=== PATIENT | female | born 1945 | race Caucasian/White ===

== ENCOUNTER → 2016-12-22 | Outpatient (CLI) | payer BC ==
[~2016-12-22] MED LIST: ATOR10TA88 PO; CHOL100010 PO; CLTP PO; DIGO0.122 PO; DILT120C PO; LEVO125T4 PO; XRL10 PO; [UNRECOGNIZED DRUG - OTHER]
[2016-12-22 13:36] LABS: THYROID STIMULATING HORMONE 0.141 uIu/ml (0.300-4.500)
[2016-12-24 17:59] LABS: THYROGLOBULIN <0.1 NG/ML (2.8-40.9)
== END | disposition home or self-care (01) ==
LOC: C.LABBFT 08:25
PROVIDERS: ATTEND Internal Medicine Endocrinology, Diabetes & Metabolism
DX: Z85.850 Personal history of malignant neoplasm of thyroid (principal)

== ENCOUNTER → 2017-01-19 | Outpatient (CLI) | payer BC ==
[~2017-01-19] MED LIST changes: +ATOR10TA82 PO; -ATOR10TA88 PO; -LEVO125T4 PO; +LEVO125T5 PO
--- NOTE | 2017-01-19 16:24 | MAMMOGRAPHY REPORT ---
BILATERAL DIGITAL SCREENING MAMMOGRAM WITH CAD: 01/19/2017 CLINICAL HISTORY: Routine screening. Patient has no complaints. TECHNIQUE: Bilateral CC and MLO views were obtained. Current study was also evaluated with a Comput er Aided Detection (CAD) system. COMPARISON: Comparison is made to exams dated: 12/24/2015 mammogram, 12/13/2014 mammogram, 10/21/2013 mammogram, 10/15/2012 mammogram, 10/09/2011 mammogram, and 10/02/2010 mammogram - [facility]. BREAST COMPOSITION: There are scattered areas of fibroglandular density in both breasts. FINDINGS: There is a stable benign coarse calcification in the left breast. No new suspicious mas s, architectural distortion or cluster of microcalcifications is seen. IMPRESSION: ACR BI-RADS CATEGORY 2: BENIGN There is no mammographic evidence of malignancy. A 1 year screening mammogram is recommended. The p atient will receive written notification of the results. Approximately 10% of breast cancers are not detected with mammography. A negative mammographic repor t should not delay biopsy if a clinically suggestive mass is present. Elicia Casillas M.D. ay/:01/19/2017 15:21:33 Sap Basis: Winifred OCHOA(Chiqui)(M), [facility] letter sent: Normal 1/2 BI-RADS Code: ACR BI-RADS Category 2: Benign
== END | disposition home or self-care (01) ==
LOC: C.MAMM 08:50
PROVIDERS: ATTEND Internal Medicine
DX: Z12.31 Encounter for screening mammogram for malignant neoplasm of breast (principal)

== ENCOUNTER → 2017-03-18 | Outpatient (CLI) | payer BC ==
[2017-03-18 18:50] LABS: THYROID STIMULATING HORMONE 0.459 uIu/ml (0.300-4.500)
== END | disposition home or self-care (01) ==
LOC: C.LABBFT 10:32
PROVIDERS: ATTEND Internal Medicine Endocrinology, Diabetes & Metabolism
DX: R94.6 Abnormal results of thyroid function studies (principal); Z85.850 Personal history of malignant neoplasm of thyroid

== ENCOUNTER → 2017-03-20 | Outpatient (CLI) | payer BC ==
--- NOTE | 2017-03-20 10:59 | DIAGNOSTIC IMAGING REPORT ---
RIGHT ANKLE MIN 3 VIEWS ROUTINE CLINICAL HISTORY: Right ankle mass COMPARISON: None. DISCUSSION: No fractures or dislocations are visualized. There are no erosive or destructive changes. There is a plantar calcaneal spur. No soft tissue masses are visualized on conventional graphic imaging. IMPRESSION: 1. No significant bony abnormalities 2. There are no conventional radiographic findings to explain the patient's palpable soft tissue lesion. Clinical follow-up is advocated. Electronically signed by: Vinicius Blank M.D. 03/20/2017 10:57 AM Dictated Date/Time: 03/20/2017 10:56 AM
== END | disposition home or self-care (01) ==
LOC: C.RAD1850 10:37
PROVIDERS: ATTEND Physician Assistant Medical
DX: M79.89 Other specified soft tissue disorders (principal)

== ENCOUNTER → 2018-01-27 | Outpatient (CLI) | payer BC ==
[~2018-01-27] MED LIST changes: +DILT-213 PO; -DILT120C PO
--- NOTE | 2018-01-28 14:45 | MAMMOGRAPHY REPORT ---
BILATERAL DIGITAL SCREENING MAMMOGRAM TOMOSYNTHESIS WITH CAD: 01/27/2018 CLINICAL HISTORY: Routine screening. Patient has no complaints. TECHNIQUE: Breast tomosynthesis in addition to standard 2D mammography was performed. Current study was also evaluated with a Computer Aided Detection (CAD) system. COMPARISON: Comparison is made to exams dated: 01/19/2017 mammogram, 12/24/2015 mammogram, 12/13/2014 m ammogram, 10/21/2013 mammogram, 10/15/2012 mammogram, and 10/09/2011 mammogram - [facility]ter. BREAST COMPOSITION: There are scattered areas of fibroglandular density in both breasts. FINDINGS: No suspicious masses, calcifications, or areas of architectural distortion are noted in ei ther breast. There has been no significant interval change compared to prior exams. IMPRESSION: ACR BI-RADS CATEGORY 1: NEGATIVE There is no mammographic evidence of malignancy. A 1 year screening mammogram is recommended. The pa tient will receive written notification of the results. Approximately 10% of breast cancers are not detected with mammography. A negative mammographic report should not delay biopsy if a clinically suggestive mass is present. Sadia Thomas M.D. ah/:01/27/2018 15:50:37 Fire Eater: Winifred Moran RT(R)(M), [facility] letter sent: Normal 1/2 BI-RADS Code: ACR BI-RADS Category 1: Negative
== END | disposition home or self-care (01) ==
LOC: C.MAMM 13:17
PROVIDERS: ATTEND Internal Medicine
DX: Z12.31 Encounter for screening mammogram for malignant neoplasm of breast (principal)

== ENCOUNTER 2022-01-07 05:07 | Observation (INO) ==
--- NOTE | 2021-12-19 15:42 | PAT Medication Instructions ---
Medication Instructions Date of Service December 19, 2021 Home Medications Medication Instructions Recorded ipratropium bromide 21 mcg (0.03 See Rx Instructions .ROUTE 01/14/ %) nasal spray .COMPLEX #30 ml cholecalciferol (vitamin D3) 25 mcg (1,000 unit) capsule 1,000 units PO HS calcium carbonate-vitamin D3 600 mg-125 unit tablet 2 tab PO BID ipratropium bromide 21 mcg (0.03 %) nasal spray See Rx Instructions acetaminophen 500 mg tablet 1,000 mg PO BID beclomethasone dipropionate 40 mcg/actuation HFA breath activated aerosol (Qvar RediHaler) 2 inh INH BID PRN digoxin 125 mcg (0.125 mg) tablet 125 mcg PO HS diltiazem HCl 120 mg capsule,extended release 24 hr 120 mg PO HS levothyroxine 125 mcg tablet 112 mcg PO QAM mometasone 50 mcg/actuation nasal spray 2 spray INTNAS BID PRN rivaroxaban 20 mg tablet 20 mg PO QPM rosuvastatin 10 mg tablet 5 - 10 mg PO QAM ASK your prescriber and surgeon rivaroxaban 20 mg tablet 20 mg PO QPM (must be off Xarelto 72 hours in order to get spinal anesthesia) DO NOT take the morning of surgery calcium carbonate-vitamin D3 600 mg-125 unit tablet 2 tab PO BID Take morning of surgery With a small sip of water, OTHERWISE NOTHING TO EAT OR DRINK AFTER MIDNIGHT: acetaminophen 500 mg tablet 1,000 mg PO BID (okay to take up to 4 hours prior to surgery if needed) beclomethasone dipropionate 40 mcg/actuation HFA breath activated aerosol (Qvar RediHaler) 2 inh INH BID PRN (if needed) ipratropium bromide 21 mcg (0.03 %) nasal spray See Rx Instructions levothyroxine 125 mcg tablet 112 mcg PO QAM mometasone 50 mcg/actuation nasal spray 2 spray INTNAS BID PRN (if needed) rosuvastatin 10 mg tablet 5 - 10 mg PO QAM Take evening before surgery cholecalciferol (vitamin D3) 25 mcg (1,000 unit) capsule 1,000 units PO HS calcium carbonate-vitamin D3 600 mg-125 unit tablet 2 tab PO BID ipratropium bromide 21 mcg (0.03 %) nasal spray See Rx Instructions acetaminophen 500 mg tablet 1,000 mg PO BID beclomethasone dipropionate 40 mcg/actuation HFA breath activated aerosol (Qvar RediHaler) 2 inh INH BID PRN (if needed) digoxin 125 mcg (0.125 mg) tablet 125 mcg PO HS diltiazem HCl 120 mg capsule,extended release 24 hr 120 mg PO HS levothyroxine 125 mcg tablet 112 mcg PO QAM mometasone 50 mcg/actuation nasal spray 2 spray INTNAS BID PRN (if needed) Other Notes If you have any questions please call us at [phone] or [phone] or [phone] or [phone]
--- NOTE | 2021-12-23 14:25 | Anesthesiology Consultation ---
Date of Service December 23, 2021 Assessment & Plan (1) Encounter for pre-operative examination: - check BSG am DOS. - cardiology pre-op evaluation and optimization note with recommendations 10/22/2021 [place]: "...permanent atrial fibrillation doing well with no cardiopulmonary symptoms. Ventricular rate well controlled on her current combination of diltiazem and digoxin...was on metoprolol at 1 point but noted dyspnea, she feels much better on the diltiazem and digoxin combination...CHADS- VASC2 score of 3, the predicted annual thromboembolic rate exceeds the risk of being on rivaroxaban. She has had no bleeding problems, and her earlier pe rceived side effects resolved, therefore continue rivaroxaban. Lipid profile favorable on current low-dose statin...elevated hemoglobin A1c. No change in her current medical regimen. Multiple prescriptions refilled (printed out). Historically she has a good functional status and she has no known coronary disease, thus she could proceed to left hip replacement without further testing if necessary. She would stop her rivaroxaban for 2 days prior to surgery (not including the day of surgery) and continue digoxin and diltiazem for rate control..." - COVID screening: Per assessment on 12/23/2021: Travel screen negative, no known COVID-19 positive contacts or current COVID-19 related symptoms in past 2 weeks. Patient vaccinated. Surgeon arranging preop COVID testing, scheduled 01/03/2022. Awaiting results. Chart Review Chart Review: Acceptable Risk for Surgery and Patient seen in Pre Admission Testing Teaching & Discussion Pre-Anesthesia Teaching/Discussion Notes: Instructed NPO after midnight before surgery, except medications with 15 cc of water. Medication instructions provided according to the PAT guidelines. History Surgery Operation Date: 01/07/22 12:55 Proposed Procedures p Left Total Hip Replacement - Zion Bonds MD Height/Weight Height: 5 ft 5 in Weight: 79.3 kg Allergies Allergy/AdvReac Type Severity Reaction Status Date / Time metoprolol [From Toprol XL] AdvReac Severe Severe SOB Verified 12/20/21 11:11 Medications Home Medications Medication Instructions Recorded Confirmed Last Taken cholecalciferol (vitamin D3) 25 1,000 units PO HS 05/10/19 12/23/21 Unknown mcg (1,000 unit) capsule calcium carbonate-vitamin D3 600 2 tab PO BID tab 10/18/19 12/23/21 Unknown mg-125 unit tablet ipratropium bromide 21 mcg (0.03 See Rx Instructions .ROUTE 01/14/21 12/23/21 Unknown %) nasal spray .COMPLEX #30 ml acetaminophen 500 mg tablet 1,000 mg PO BID 12/19/21 12/23/21 Unknown beclomethasone dipropionate 40 2 inh INH BID PRN 12/19/21 12/23/21 Unknown mcg/actuation HFA breath activated aerosol (Qvar RediHaler) digoxin 125 mcg (0.125 mg) tablet 125 mcg PO HS 12/19/21 12/23/21 Unknown diltiazem HCl 120 mg 120 mg PO HS 12/19/21 12/23/21 Unknown capsule,extended release 24 hr levothyroxine 125 mcg tablet 112 mcg PO QAM 12/19/21 12/23/21 Unknown mometasone 50 mcg/actuation nasal 2 spray INTNAS BID PRN 12/19/21 12/23/21 Unknown spray rivaroxaban 20 mg tablet 20 mg PO QPM 12/19/21 12/23/21 Unknown rosuvastatin 10 mg tablet 5 - 10 mg PO QAM 12/19/21 12/23/21 Unknown Past Medical History Medical History (Updated 12/24/21 @ 08:25 by Ebony Zarate PA-C) Atrial fibrillation Follows with Dr. Swan, on anticoagulation Chronic sinusitis Greater trochanteric pain syndrome of left lower extremity History of thyroid cancer s/p total thyroidectomy and radioactive iodine, on levothyroxine and follows with endocrinology Impaired fasting glucose A1c 6.4% 07/2021 Lumbar radiculopathy Mild reactive airways disease chronic cough and throat clearing, controlled and stable per pt, follows with PCP and pulmonology Pulmonary nodules Sciatica Spinal stenosis Patient denies h/o stroke, seizures, heart attack, heart failure, blood clots or blood transfusions. Exercise / Class Metabolic Activity II 4-5 Yardwork/Stairs/Walk up hill (denies CP or SOB with 1 FOS) Past Family History Family History Mother Colon cancer Osteoarthritis Heart disease Father Stroke syndrome Osteoarthritis Herpes zoster Daughter Thyroid cancer Breast cancer Aunt Breast cancer Grandfather Myocardial infarction Other Coronary heart disease Denies family history of Ovarian cancer Prostate cancer Past Surgical History Surgical History H/O cardiac radiofrequency ablation History of cataract surgery R/L History of colonoscopy History of hysterectomy TOTAL History of parathyroidectomy History of thyroidectomy, total Past Anesthesia History No Hx of Anesthesia Complications and No Family Hx of Anesthesia Complications History of PONV No Hx of PONV and No Hx of Motion Sickness Social History Smoking Status: Former smoker Smoking cigarettes per day: <5 Do You Dip or Chew Tobacco: No Smoking End Date: QUIT AGE 49 Hx Alcohol Use: No Hx Substance Use: No Review of Systems H/o snoring, denies witnessed apneas or sleep studies. Occasional reflux if eats re-fried beans. Rare chronic palpitations, denies change or worsening. Denies dizziness, lightheadedness or shortness of breath. Patient denies chest pain, shortness of breath, dyspnea on exertion, snoring, witnessed apneas, fever, chills, wheezing, or palpitations. Physical Exam Vital Signs Vitals BP 118/69 P 88 TEMP 97.4 SP02 97% on RA RESP 17 Physical Full cervical extension range of motion without pain Full TMJ range of motion TMD 3.5 finger breaths Mallampati Score 1 Dentition: intact, multiple caps/crowns throughout and one implant upper right side; denies missing, loose or chipped teeth, bridges Lungs: normal respiratory effort. Clear throughout to auscultation, no adventitious breath sounds Cardiac: regular rate and rhythm, no murmurs noted Carotid arteries: negative bruit bilat Lab Results Anesthesia Preop Results Results Anesthesia Widget: WBC 7.15 K/uL (4.8-10.8) 12/23/21 Hgb 15.0 g/dL (12.0-16.0) 12/23/21 Hct 43.8 % (37-47) 12/23/21 Plt 229 K/uL (130-400) 12/23/21 Na 139 mmol/L (136-145) 12/23/21 K 3.9 mmol/L (3.5-5.1) 12/23/21 Cl 104 mmol/L (98-107) 12/23/21 CO2 26 mmol/L (21-32) 12/23/21 BUN 15 mg/dl (6-23) 12/23/21 Creat 1.08 mg/dl (0.6-1.2) 12/23/21 Glucose Level 100 mg/dl (70-99(Fasting)) H 12/23/21 PT 11.9 Seconds (9.0-12.0) 12/23/21 PTT 32.6 Seconds (21.0-31.0) H 12/23/21 INR 1.1 (0.9-1.1) 12/23/21 Blood Type O Positive 12/23/21 Antibody Screen NEGATIVE 12/23/21 Testing Electrocardiogram Date: 12/23/21 Atrial fibrillation with premature ventricular or aberrantly conducted complexes, rate 100 bpm Chest X-Ray Date: 12/23/21 Frontal and lateral radiographs of the chest demonstrate the cardiomediastinal silhouette to be within normal limits. The lungs are clear of alveolar opacities. There is no evidence for effusion bilaterally. There is no evidence for vascular congestion. There is no acute osseous pathology. IMPRESSION: 1. No acute cardiopulmonary disease.
[2022-01-07] MEDS ORDERED: TRANEXAMIC ACID 1,000 MG **IV Pre-op IV SCH (06:00)
[2022-01-07] MEDS ORDERED: FAMOTIDINE 20 MG TAB PO SCH (06:00)
[2022-01-07] MEDS ORDERED: ceFAZolin 2000MG 2,000 MG/15 ML SYR IV SCH (06:00)
[2022-01-07] MEDS ORDERED: GABAPENTIN 300 MG CAP PO SCH (06:00)
[2022-01-07] MEDS ORDERED: BUPIVACAINE LIPOSOME/PF 266 MG, BUPIVACAINE/EPINEPHRINE 50 ML, SODIUM CHLORIDE 0.9% 30 ... INFIL SCH (06:00)
[2022-01-07] MEDS ORDERED: LR 60ML/HR IV SCH (06:00)
[2022-01-07] MEDS ORDERED: METOCLOPRAMIDE HCL 10 MG TABLET PO SCH (06:00)
[2022-01-07] MEDS ORDERED: LR 500ML BOLUS, THEN 15ML/HR IV SCH (06:00)
[2022-01-07] MEDS ORDERED: ACETAMINOPHEN 500 MG TAB PO SCH (06:00)
[2022-01-07] MEDS ORDERED: BUPIVACAINE 0.5 % 5 MG/1 ML MPF 30ML VIAL ONE (06:31)
[2022-01-07] MEDS ORDERED: EPINEPHrine INJ 1 MG/ML AMP ONE (06:31)
[2022-01-07] MEDS ORDERED: BUPIVACAINE 0.5 % 5 MG/1 ML PF 10ML VIAL ONE (06:33)
[2022-01-07] MEDS ORDERED: MIDAZOLAM HCL 1 MG/ML 2ML VIAL ONE (06:41)
--- NOTE | 2022-01-07 06:52 | History & Physical Bridge Note ---
Date of Service January 07, 2022 History & Physical Bridge Note I have examined the patient, reviewed the History & Physical and in the interval since the performance of the History & Physical I have noted the following changes of clinical significance: no changes noted
[2022-01-07] MEDS ORDERED: ONDANSETRON INJ 2 MG/ML 2 ML VIAL IV PRN ×2 (07:01→12:27)
[2022-01-07] MEDS ORDERED: HYDROmorphone INJ 1 MG/ML SYRINGE IV PRN (07:01)
[2022-01-07] MEDS ORDERED: ePHEDrine sulfate 50 MG/ML AMP IV PRN (07:01)
[2022-01-07] MEDS ORDERED: ATROPINE SULFATE 0.1 MG/ML 10ML SYR IV PRN (07:01)
[2022-01-07] MEDS ORDERED: fentaNYL citrate 100 MCG/2 ML VIAL IV PRN (07:01)
[2022-01-07] MEDS ORDERED: fentaNYL citrate 100 MCG/2 ML VIAL ONE (07:11)
[2022-01-07] MEDS ORDERED: ONDANSETRON INJ 2 MG/ML 2 ML VIAL ONE (07:14)
[2022-01-07] MEDS ORDERED: LIDOCAINE 2% 2 ML VIAL/AMP(20MG/ML) INFIL ONE (07:14)
[2022-01-07] MEDS ORDERED: PROPOFOL IV EMULSION 10 MG/ML 20 ML VIAL IV ONE (07:14)
[2022-01-07] MEDS ORDERED: PHENYLEPHRINE HCL 10 MG/ML VIAL ONE (08:14)
[2022-01-07] MEDS ORDERED: PHENYLEPHRINE 100MCG/ML 5ML SYR ONE (08:14)
--- NOTE | 2022-01-07 08:36 | Operative Report ---
PG Post Operative Report Pre & Post Diagnosis Operation Date: 01/07/22 07:00 Pre-Op Diagnosis: Left Hip Osteoarthritis Post-Op Diagnosis: Left Hip Osteoarthritis I identified the patient and participated in the time-out.: Yes Procedure Operation Date: 01/07/22 07:00 Actual Procedures p Left Total Hip Arthroplasty, Uncemented(Left) - Zion Bonds MD Surgeon Zion Bonds MD [place] Jamel Gabriel PA-C Estimated Blood Loss 200 Findings Consistent with Post-Op Diagnosis Operative findings revealed advanced left hip DJD. She had a moderate-sized joint effusion. She did have grade 4 hslm-nr-voct disease. Not much in the way of osteophyte formation or eburnation but full-thickness cartilage loss. Fluids 1300 cc Specimens Left femoral head sent for pathology Drains None Anesthesia Type Spinal MAC Complications none Disposition Accompanied Patient To Recovery: Yes Indications Patient is a 77-year-old female has had a several year history of gradual increased pain discomfort in the left hip which is significantly increased over the past year. She became more debilitated by her pain. X-rays initially were fairly benign in appearance then over the past 6 to 12 months of deteriorated significantly. She had an MRI which showed advanced hip arthritis. She failed conservative measures and elected proceed with left total hip arthroplasty. Description of Procedure Operative implants consist of: 1 Biomet G7 size 50 mm acetabular shell. 2. 6.5 cancellous acetabular screws 135 mm length 1 of 30 mm length. 3. [place] hole cable assembler and swager. 4. Highly cross-linked polyethylene liner with a 50 mm outer diameter and 36 mm inner diameter. 5. [place] Corail size 125 degree angle short neck femoral stem. 6. +5/36 mm ceramic articular ball. The patient was taken to the operating, identified, and placed on the operating table supine position. All contact areas were properly padded. IV antibiotics tried by anesthesia team. A Candelario catheter was placed in sterile fashion. A spinal anesthetic had been implemented holding area. The patient was then placed in the right lateral decubitus position. Axillary roll was placed. A Stulberg hip positioner was used for positioning. The left hip and leg were then prepped and draped in usual sterile fashion. A posterior lateral approach to the left hip was then performed to a curvilinear incision centered over the greater trochanter. Sharp dissection was carried through subcutaneous tissue down to level the IT band gluteal fascia the IT band gluteal fascia were then incised longitudinally in line with skin incision. The underlying greater bursa was excised. The piriformis and external rotators along with the posterior hip joint capsule were then released from the proximal aspect of the femur as a single layer. Hip was internally rotated and dislocated. A femoral neck osteotomy cut was made with Final Cut about 5 mm above the lesser trochanter. Femoral head was removed and sent for pathology. Attention drawn the acetabulum. The acetabular labrum was excised. The pulmonary fat was excised. Sequential reaming the acetabular then performed begin with size 43 and progressing up to a 49. I then placed a 50 mm Biomet G7 acetabular shell in about 40 degrees lateral opening and 20 degrees of anteversion. It was fixed with two 6.5 cancellous acetabular screws. A trial liner was placed. Attention drawn the femur. The proximal femur was entered with a cookie-cutter followed by canal finder. I then broached begin the size 8 and progressed up to 12. Got excellent fit of the 12. Hip was then trialed and that was fully stable in full extension and external rotation and flexion to 90 degrees internal rotation over 50 degrees. Soft tissue tension seemed appropriate leg lengths seem equal. We elect to place these implants. All trial implants were removed. An apex hole cable assembler and swager was placed but highly cross-linked polyethylene liner was placed. A DePuy size 1225 degree angle short neck femoral stem was impacted in position. +5/36 mm ceramic articular ball was placed. Hip was located once again found to be stable. Attention drawn toward closing. The wounds irrigated scope soft pulsatile lavage solution. We did inject locally with 60 cc of half percent Marcaine with epinephrine. Posterior capsule and external rotators were repaired through drill holes in the posterior trochanter as a single layer with #2 Tycron suture. The IT band gluteal fascia then closed in 1 PDS suture in running fashion fashion. Subcutaneous tissue then closed in 2 layers with a deep layer #1 Vicryl suture and subcutaneous tissues with 2-0 Dexon suture in a buried interrupted fashion. Skin was closed skin ozzy. Leg was then cleaned dried a sterile dressing both Xeroform, 4 fours, ABD pad, foam tape were applied. The patient then transferred to the recovery room in stable condition. Patient tolerated procedure well and there were no complications. Jamel Gabriel, my physician itinerant teacher assistant, was present for the entire procedure. His assistance was essential and required for appropriate patient positioning, prepping and draping, surgical exposure, performing the technical details of the operation, placement the implants, closure of the wound, and placement of the sterile bandage. I attest to the content of the Intraoperative Record and any orders documented therein. Any exceptions are noted below.
--- NOTE | 2022-01-07 09:05 | XRay Report ---
XR hip 1V LT w pelvis CLINICAL HISTORY: Postoperative evaluation. COMPARISON: Left hip radiographs December 23, 2021. FINDINGS: Alignment of the total left hip arthroplasty is anatomic. No periprosthetic fracture or un expected radiopaque foreign body. Skin ozzy are present. There are 2 acetabular screws. Pelvic freddie cifications are unchanged. These favor phleboliths. IMPRESSION: Expected findings following total left hip arthroplasty. ACT 112: Negative or not required by law. Electronically signed by: Reinaldo Castro M.D. 01/07/2022 9:04 AM
[2022-01-07] MEDS ORDERED: NALOXONE HCL 0.4 MG/1 ML VIAL/CARP IV PRN (12:27)
[2022-01-07] MEDS ORDERED: ROSUVASTATIN CALCIUM 10 MG TAB PO SCH (12:27)
[2022-01-07] MEDS ORDERED: bisacodyL 10 MG SUPP PR PRN (12:27)
[2022-01-07] MEDS ORDERED: METOCLOPRAMIDE HCL INJ 5 MG/ML 2 ML VIAL IV PRN (12:27)
[2022-01-07] MEDS ORDERED: SODIUM CHLORIDE 0.9% 1000ML 1,000 ML IV SCH (12:27)
[2022-01-07] MEDS ORDERED: DOCUSATE SODIUM/SENNA 50/8.6MG TAB PO SCH (12:27)
[2022-01-07] MEDS ORDERED: ALUMINUM/MAGNESIUM SUSP 30 ML UDC PO PRN (12:27)
[2022-01-07] MEDS ORDERED: HYDROmorphone INJ 0.5 MG/0.5 ML SYR IV PRN (12:27)
[2022-01-07] MEDS ORDERED: MAGNESIUM HYDROXIDE SUSP 30 ML UDC PO PRN (12:27)
[2022-01-07] MEDS ORDERED: FLUTICASONE FUROATE 100MCG 14 PUFFS/INHALER INH PRN (12:41)
--- NOTE | 2022-01-07 13:46 | Anesthesiology Progress Note ---
Date of Service January 07, 2022 Anesthesia Post Procedure Vital Signs Vital Signs: Temp Pulse Pulse Resp BP BP Pulse Ox 01/07/22 13:15 36.3 C L 93 H 16 104/70 97 01/07/22 12:45 36.3 C L 83 16 106/71 95 01/07/22 12:15 36.3 C L 90 16 95/63 L 94 01/07/22 12:05 80 18 103/62 98 01/07/22 11:55 70 12 97/52 L 97 01/07/22 11:50 88 15 103/70 95 01/07/22 11:45 70 16 95/59 L 93 01/07/22 11:35 36.4 C L 78 16 90/57 L 97 01/07/22 11:25 71 20 98/55 L 95 01/07/22 11:15 74 19 96/62 L 94 01/07/22 11:05 78 20 91/60 L 95 01/07/22 10:55 68 18 95/56 L 94 01/07/22 10:45 76 14 83/55 L 95 01/07/22 10:35 69 20 83/55 L 95 01/07/22 10:25 74 17 89/57 L 97 01/07/22 10:15 70 20 82/58 L 97 01/07/22 10:05 73 18 94/55 L 98 01/07/22 09:55 68 15 92/54 L 95 01/07/22 09:45 74 14 86/55 L 99 01/07/22 09:35 72 19 83/46 L 95 01/07/22 09:25 71 18 92/49 L 95 01/07/22 09:15 64 16 106/67 97 01/07/22 09:10 61 12 112/61 95 01/07/22 09:05 66 14 84/50 L 98 01/07/22 08:55 63 18 94/49 L 99 01/07/22 08:45 71 19 80/51 L 95 01/07/22 08:35 71 20 88/47 L 99 01/07/22 08:27 36.2 C L 72 16 102/55 L 98 01/07/22 05:31 36.8 C 90 20 148/91 H 99 Pain Intensity Left Hip: Pain Intensity: 2 Transfer of Care Handoff Completed per policy Notes Mental Status: alert / awake / arousable and participated in evaluation Patient Amnestic to Procedure: Yes Nausea / Vomiting: adequately controlled Pain: adequately controlled Airway Patency, RR, SpO2: stable & adequate BP & HR: stable & adequate Hydration State: stable & adequate Neuraxial Anesthesia: was administered and sensory block is resolving Anesthetic Complications: no major complications apparent and Pt Satisfied with anesthetic care Notes: Per patient her blood pressure is typically in the low 100s systolic. The patient feels well with no complaints.
[2022-01-07] MEDS ORDERED: TRANEXAMIC ACID / 0.7% NACL 1,000 MG/100 ML BAG IV SCH (14:30)
[2022-01-07] MEDS: DOCUSATE SODIUM 100 MG CAP PO SCH ×2 (14:34→20:41)
[2022-01-07] MEDS: KETOROLAC TROMETHAMINE 15 MG/ML VIAL IV SCH ×2 (14:34→20:25)
[2022-01-07] MEDS: MULTIVITAMIN TAB PO SCH (14:34)
[2022-01-07] MEDS: ACETAMINOPHEN 500 MG TAB PO SCH ×2 (14:34→22:17)
[2022-01-07] MEDS: ceFAZolin 1000MG 1,000 MG/7.5 ML SYR IV SCH ×2 (14:35→22:45)
[2022-01-07] MEDS: traMADol HCL 50 MG TABLET PO PRN ×2 (14:36→19:36)
[2022-01-07] MEDS ORDERED: ONDANSETRON 4 MG OD TAB PO PRN (16:05)
[2022-01-07] MEDS: ASCORBIC ACID 500 MG TAB PO SCH (17:06)
[2022-01-07] MEDS: CALCIUM CARBONATE 1250MG TAB PO SCH (20:27)
[2022-01-07] MEDS ORDERED: dilTIAZem HCL 120 MG CAPCR PO SCH (21:00)
[2022-01-07] MEDS ORDERED: ROSUVASTATIN CALCIUM 5 MG TAB PO SCH (21:00)
[2022-01-07] MEDS ORDERED: CHOLECALCIFEROL 1,000 UNITS 25 MCG TAB PO SCH (21:00)
[2022-01-07] MEDS ORDERED: DIGOXIN 0.125 MG TAB PO SCH (21:00)
[2022-01-07] MEDS ORDERED: SENNA 8.6 MG TAB PO SCH (21:00)
[2022-01-07] MEDS ORDERED: SODIUM CHLORIDE 0.9% 1000ML 1,000 ML IV ONE (23:15)
[2022-01-08] MEDS: SODIUM CHLORIDE 0.9% 1000ML 1,000 ML IV SCH ×2 (00:13→10:40)
[2022-01-08] MEDS: KETOROLAC TROMETHAMINE 15 MG/ML VIAL IV SCH ×2 (02:29→07:53)
[2022-01-08] MEDS ORDERED: SODIUM CHLORIDE 0.9% 1000ML 1,000 ML IV ONE (02:53)
[2022-01-08] MEDS: ACETAMINOPHEN 500 MG TAB PO SCH (05:57)
[2022-01-08] MEDS ORDERED: LEVOTHYROXINE SODIUM 112 MCG TABLET PO SCH (06:30)
[2022-01-08] MEDS: ASCORBIC ACID 500 MG TAB PO SCH (07:51)
[2022-01-08] MEDS: MULTIVITAMIN TAB PO SCH (07:51)
[2022-01-08] MEDS: CALCIUM CARBONATE 1250MG TAB PO SCH (07:51)
[2022-01-08] MEDS: DOCUSATE SODIUM 100 MG CAP PO SCH (07:52)
[2022-01-08] MEDS ORDERED: dexAMETHasone 10 MG in SYRINGE 0 ML IV SCH (08:00)
[2022-01-08 08:09] LABS: Basophils # (auto) 0.01 K/uL (0-0.2); Basophils % (auto) 0.1 %; Eosinophils # (auto) 0.18 K/uL (0-0.5); Eosinophils % (auto) 1.9 %; Hemoglobin 11.5 g/dL (12.0-16.0); Immature Granulocytes # (auto) 0.01 K/uL (0.00-0.02); Immature Granulocytes % (auto) 0.1 %; Lymphocytes # (auto) 1.01 K/uL (1.2-3.4); Lymphocytes % (auto) 10.5 %; Mean Corpuscular Hemoglobin 28.4 pg (25-34); Mean Corpuscular Hgb Conc 33.8 g/dL (32-36); Mean Platelet Volume 11.9 fL (7.4-10.4); Monocytes # (auto) 1.25 K/uL (0.11-0.59); Neutrophils # (auto) 7.17 K/uL (1.4-6.5); Neutrophils % (auto) 74.4 %; Platelet Count 150 K/uL (130-400); RDW Coefficient of Variation 13.5 % (11.5-14.5); RDW Standard Deviation 41.2 fL (36.4-46.3); Red Blood Count 4.05 M/uL (4.2-5.4); White Blood Count 9.63 K/uL (4.8-10.8)
[2022-01-08 08:34] LABS: BUN Creatinine Ratio 14.2 (10-20); Calcium 7.4 mg/dl (8.5-10.1); Creatinine Clr Calc Pharmacy 42.5 ml/min; Est GFR (African American) 53.9 ml/min; Est GFR (Non-African American) 46.5 ml/min
[2022-01-08] MEDS ORDERED: RIVAROXABAN 10 MG TABLET PO SCH (09:00)
--- NOTE | 2022-01-08 10:38 | Progress Notes ---
DATE OF SERVICE: 01/08/2022 SUBJECTIVE: A 77-year-old white female postoperative day 1 from left hip replacement. She is doing pretty well. Pain has been manageable. She is concerned that her blood pressure has been low. She is asymptomatic. Denies any chest pain or shortness of breath. Not feeling dizzy or lightheaded. OBJECTIVE: VITAL SIGNS: Temperature is 36.6. Vital signs are stable. Last blood pressure recorded was 74/54. PHYSICAL EXAMINATION: GENERAL: Shows a pleasant, elderly female. She is sitting up in her bedside chair, looks completely comfortable. LUNGS: Clear to auscultation. HEART: Has a regular rate and rhythm. ABDOMEN: Soft, nontender, nondistended. EXTREMITIES: Grossly neurovascularly intact except as follows: Examination of the left leg and hip reveals the dressing to be clean, dry and intact. Leg lengths appear equal. She can dorsiflex and p lantarflex her foot appropriately. She is neurologically intact. LABORATORY DATA: Hemoglobin is 11.5. Hematocrit 34.0. Electrolytes are stable. ASSESSMENT: A 77-year-old white female postoperative day 1 from a left hip replacement, doing pretty well. She is all concerned about her blood pressure, but she is completely asymptomatic. Her blood pressure actually increases when she gets up, likely related to pain. PLAN: 1. DVT prophylaxis including thigh-high TEDs, SCDs and back on her Xarelto. She will begin at proph ylactic dose today and then on discharge go to her therapeutic dose. 2. PT/OT. She can weight bear as tolerated. Left total hip protocol. 3. Pain control, doing okay with current pain regimen. 4. Hypotension. She has got several boluses of fluid. She looks comfortable and asymptomatic. I t hink this will just correct itself over time. Encouraged good p.o. intake. We will see how therapy goes. 5. Disposition: Plan to discharge to home with some home health when she does okay in therapy. Job ID: [id number]
--- NOTE | 2022-01-13 07:50 | Discharge Summary ---
Date of Service January 13, 2022 Discharge Data Procedures Performed Operation Date: 01/07/22 07:00 Actual Procedures p Left Total Hip Arthroplasty, Uncemented(Left) - Zion Bonds MD Hospital Course (1) S/P total left hip arthroplasty: This patient is a 77 year old admitted on 01/07/22 and underwent total hip arthroplasty. She tolerated the procedure well and there were no complications. Transferred to the PACU post op and later to the orthopedic floor for further care. She was given ancef for antibiotic prophylaxis. She was also given JOE stockings, SCDs, and xarelto for DVT prophylaxis. Hemoglobin, hematocrit, and vital signs were monitored during her hospital stay and remained stable. Did not require any blood transfusions. There were no complications during her hospital stay. By post op day #1 the patient was tolerating a regular diet, pain was reasonably controlled with oral pain medicine, and she was participating in physical therapy. On post op day #1 the patient was discharged home and set up with home health care. She was given printed discharge instructions including prescriptions for extra strength tylenol, xarelto, zofran, and tramadol. Continu e physical therapy, weight bearing as tolerated. Continue hip precautions. Continue JOE stockings. Follow up approximately 2 weeks post op or sooner if there are problems or concerns. Coding Level of Care Code None Diagnoses S/P total left hip arthroplasty Z96.642
== END 2022-01-08 12:07 | disposition home or self-care (01) ==
LOC: ASU 05:07 → 3E 05:07
DX: M16.12 Unilateral primary osteoarthritis, left hip; Z79.01 Long term (current) use of anticoagulants; Z79.899 Other long term (current) drug therapy; Z87.891 Personal history of nicotine dependence; E89.0 Postprocedural hypothyroidism